=== PATIENT | male | born 1955 | race Caucasian/White ===

== ENCOUNTER → 2017-02-12 | Outpatient (CLI) | payer OTHER ==
[~2017-02-12] MED LIST: ALDACTONE PO; ALLEGRA PO; ALPRAZOLAM PO; AMARYL PO; ASMANEX INHALER IH; ASPIRIN PO; AVAPRO PO; CELEBREX PO; COCHICINE PO; DEMADEX PO; LASIX PO; LEXAPRO PO; LORTAB 10/500 T1 TAB PO; MICRO-K PO; PRILOSEC PO; ZYLOPRIM PO
--- NOTE | ~2017-02-12 | XA170 ---
[facility] A Service of [facility] RADIOLOGY TEXT RESULTS PATIENT: KAREN VANCE LOCATION: [facility] : 51 UNIT #: [id number] AGE: [address]: Gallo Wolf MD SEX: M ORDER DR: [id number] [facility] [address] [place], [place] [address] [id number] O MR#: [id number] Acc #: [id number] NAME: KAREN VANCE : 1955 SEX: M STUDY DATE/TIME: 02/12/2017 12:49 UNIT: [facility] ROOM: STUDY DESCRIPTION: XA Paracentesis W Image Attending Physician: Gallo Wolf M.D., Ph.D. Referring Physician: Gallo Wolf M.D., Ph.D. Ordering Physician: Gallo Wolf M.D., Ph.D. Primary Care Physician: Azar Zendejas M.D. MEDICAL IMAGING REPORT This report is preliminary unless electronic signature is present EXAM Ultrasound-guided paracentesis INDICATION Ascites. PROCEDURE The risks, benefits, and alternatives to the procedure were explained to the patient and a signed, informed consent was obtained. The patient was placed supine on the stretcher. Preliminary ultrasound of the abdomen was performed which demonstrated a large volume ascites. This image was permanently saved. The overlying skin was marked. Patient was prepped and draped in usual sterile fashion. Timeout was performed as per protocol. The skin and subcutaneous tissues were anesthetized with buffered lidocaine. A Consert catheter was advanced into the fluid with aspiration of serous material. The catheter was hooked to suction tubing and there is evacuation of 13.8 L of serous material. The catheter was then removed, and manual pressure was applied until hemostasis was obtained. The patient tolerated the procedure well and there were no immediate complications. IMPRESSION Technically successful ultrasound-guided paracentesis with evacuation of 13.8 L of serous material. Ultrasound was used during the procedure and permanent images were saved. Dictated by... Riya Uribe M.D. THIS IS AN ELECTRONICALLY VERIFIED REPORT Riya Uribe M.D. at 02/13/2017 4:41 PM AFF/aa [facility] A Service of [facility] RADIOLOGY TEXT RESULTS PATIENT: KAREN VANCE LOCATION: [facility] #: [id number] : [birth year] UNIT #: [id number] AGE: [address]: Gallo Wolf MD SEX: M ORDER DR: TD: 02/13/2017 11:06 JOB #: [id number] MEDICAL IMAGING REPORT Page 1 of 1 COPY
[2017-02-12 12:32] LABS: HEMATOCRIT 34.4 % (38.0-50.0); HEMOGLOBIN 11.2 gm/dL (13.0-16.0); MEAN CELL VOLUME 96.4 FL (83-96); MEAN CORPUSCULAR HEMOGLOBIN 31.5 PG (28-34); MEAN CORPUSCULAR HGB CONC 32.6 g/dL (30-36); MEAN PLATELET VOLUME 7.7 FL (6.5-11.5); RED BLOOD COUNT 3.57 X10e (3.90-5.60); RED CELL DISTRIBUTION WIDTH 17.8 % (11.0-15.5)
[2017-02-12 12:41] LABS: INR 1.2; PARTIAL THROMBOPLASTIN TIME 33.9 SECONDS (23.5-31.3); PROTHROMBIN TIME (PATIENT) 12.6 SECONDS (10.0-11.7)
== END | disposition home or self-care (01) ==
LOC: CIVR 12:07
PROVIDERS: Internal Medicine Hematology & Oncology
PROC: 0W9G3ZZ Drainage of Peritoneal Cavity, Percutaneous Approach (ICD-10-PCS; principal; 2017-02-12)
DX: D61.818 Other pancytopenia (principal); C15.5 Malignant neoplasm of lower third of esophagus; R18.8 Other ascites; Z99.2 Dependence on renal dialysis
CPT/HCPCS: 36415; 85027; 85610; 85730; 88108; 88305

== ENCOUNTER → 2017-03-24 | Outpatient (CLI) | payer OTHER ==
--- NOTE | ~2017-03-24 | XA170 ---
[facility] A Service of [facility] & [facility] RADIOLOGY TEXT RESULTS PATIENT: Patrick VANCE LOCATION: [facility] : 51 UNIT #: [id number] AGE: [address]: Gallo Wolf MD SEX: M ORDER DR: [id number] [facility] [address] [place], [place] [address] [id number] O MR#: [id number] Acc #: [id number] NAME: Patrick VANCE : 1955 SEX: M STUDY DATE/TIME: 03/24/2017 13:54 UNIT: [facility] ROOM: STUDY DESCRIPTION: XA Paracentesis W Image Attending Physician: Gallo Wolf M.D., Ph.D. Ordering Physician: Gallo Wolf M.D., Ph.D. Primary Care Physician: Azar Zendejas M.D. MEDICAL IMAGING REPORT This report is preliminary unless electronic signature is present EXAM Ultrasound paracentesis INDICATIONS Ascites. PROCEDURE The risks, benefits, and alternatives to the procedure were explained to the patient and signed, informed consent was obtained. He was placed supine on the stretcher. Preliminary ultrasound of the abdomen was performed. This demonstrated a large volume ascites. This image was permanently saved. Overlying skin was marked. Patient is prepped and draped in the usual sterile fashion. Time-out was performed per protocol. Skin and subcutaneous tissues were anesthetized with buffered lidocaine. Yueh catheter was advanced into the fluid with aspiration of serous material, The catheter was hooked to suction tubing. There was evacuation of a total of 13.8 L of serous material. Catheter was then removed and manual pressure was applied until hemostasis was obtained. IMPRESSION Technically successful ultrasound guided paracentesis with evacuation of 13.8 L of serous material. Ultrasound was used during the procedure and permanent images were saved. Dictated by... Riya Uribe M.D. THIS IS AN ELECTRONICALLY VERIFIED REPORT Riya Uribe M.D. at 03/26/2017 4:53 PM AFF/eric [facility] A Service of [facility] RADIOLOGY TEXT RESULTS PATIENT: Patrick VANCE LOCATION: [facility] #: [id number] : 51 UNIT #: [id number] AGE: [address]: Gallo Wolf MD SEX: M ORDER DR: TD: 03/25/2017 13:10 JOB #: [id number] MEDICAL IMAGING REPORT Page 1 of 1 COPY
[2017-03-24 13:24] LABS: HEMATOCRIT 31.3 % (38.0-50.0); HEMOGLOBIN 10.6 gm/dL (13.0-16.0); MEAN CELL VOLUME 97.8 FL (83-96); MEAN CORPUSCULAR HGB CONC 33.8 g/dL (30-36); MEAN PLATELET VOLUME 7.8 FL (6.5-11.5); RED BLOOD COUNT 3.2 X10e (3.90-5.60); WHITE BLOOD COUNT 1.4 X10e3 (4.0-10.5)
[2017-03-24 13:37] LABS: INR 1.1; PARTIAL THROMBOPLASTIN TIME 32.8 SECONDS (23.5-31.3)
== END | disposition home or self-care (01) ==
LOC: CIVR 12:54
PROVIDERS: Internal Medicine Hematology & Oncology
PROC: 0W9G3ZX Drainage of Peritoneal Cavity, Percutaneous Approach, Diagnostic (ICD-10-PCS; principal; 2017-03-24)
DX: D61.818 Other pancytopenia (principal); C15.8 Malignant neoplasm of overlapping sites of esophagus; R18.8 Other ascites
CPT/HCPCS: 36415; 85027; 85610; 85730; 88108; 88305

== ENCOUNTER → 2017-04-15 | Outpatient (CLI) | payer OTHER ==
--- NOTE | ~2017-04-15 | XA170 ---
[facility] A Service of [facility] RADIOLOGY TEXT RESULTS PATIENT: Patrick VANCE LOCATION: [facility] : 51 UNIT #: [id number] AGE: [address]: Gallo Wolf MD SEX: M ORDER DR: [id number] [facility] [place], [place] [address] [id number] O MR#: [id number] Acc #: [id number] NAME: Patrick VANCE : 1955 SEX: M STUDY DATE/TIME: 04/15/2017 8:34 UNIT: [facility] ROOM: STUDY DESCRIPTION: XA Paracentesis W Image Attending Physician: Gallo Wolf M.D., Ph.D. Referring Physician: Gallo Wolf M.D., Ph.D. Ordering Physician: Galol Wolf M.D., Ph.D. Primary Care Physician: Azar Zendejas M.D. MEDICAL IMAGING REPORT This report is preliminary unless electronic signature is present EXAM Ultrasound-guided paracentesis INDICATIONS Recurrent ascites. FINDINGS The risks, benefits, alternatives of the procedure discussed the patient informed consent was obtained. In the procedure room a timeout was performed confirming correct patient and procedure. All elements maximum sterile-barrier technique utilized according guidelines appropriate for the procedure. TECHNIQUE/FINDINGS Ultrasound of the abdomen was performed demonstrating a large volume of ascites. The skin overlying the right lower quadrant was prepped, draped in the usual sterile fashion. 1% lidocaine utilized to anesthetize the skin and underlying subcutaneous tissues. Next, under ultrasound guidance, 5-Filipino Yueh catheter was inserted into the abdomen and 12,700 mL of fluid was removed. Needle was removed and a sterile dressing was applied. No immediate complications. IMPRESSION Technically successful ultrasound-guided paracentesis Dictated by... Jack Jacques M.D. THIS IS AN ELECTRONICALLY VERIFIED REPORT Jack Jacques M.D. at 04/16/2017 7:34 AM ARS/ea [facility] A Service of [facility] RADIOLOGY TEXT RESULTS PATIENT: Patrick VANCE LOCATION: [facility] #: [id number] : 51 UNIT #: [id number] AGE: [address]: Gallo Wolf MD SEX: M ORDER DR: TD: 04/16/2017 07:01 JOB #: [id number] MEDICAL IMAGING REPORT Page 1 of 1 COPY
[2017-04-15 08:29] LABS: HEMATOCRIT 28.1 % (38.0-50.0); HEMOGLOBIN 9.6 gm/dL (13.0-16.0); MEAN CELL VOLUME 98.1 FL (83-96); MEAN CORPUSCULAR HEMOGLOBIN 33.4 PG (28-34); MEAN CORPUSCULAR HGB CONC 34.1 g/dL (30-36); MEAN PLATELET VOLUME 7.8 FL (6.5-11.5); RED BLOOD COUNT 2.86 X10e (3.90-5.60); RED CELL DISTRIBUTION WIDTH 14.3 % (11.0-15.5); WHITE BLOOD COUNT 1.5 X10e3 (4.0-10.5)
[2017-04-15 08:36] LABS: INR 1.2; PARTIAL THROMBOPLASTIN TIME 32.2 SECONDS (23.5-31.3); PROTHROMBIN TIME (PATIENT) 12.7 SECONDS (10.0-11.7)
== END | disposition home or self-care (01) ==
LOC: CIVR 07:36
PROVIDERS: Internal Medicine Hematology & Oncology
DX: Z01.812 Encounter for preprocedural laboratory examination (principal); C15.5 Malignant neoplasm of lower third of esophagus; D61.818 Other pancytopenia; R18.8 Other ascites
CPT/HCPCS: 36415; 85027; 85610; 85730